=== PATIENT | female | born 1955 | race Caucasian/White ===

== ENCOUNTER 2025-01-22 06:45 | Day surgery (SDC) | payer MEDICARE, BC ==
[~2025-01-22] VITALS: Ht 168.9 cm; Wt 116.8 kg
[2025-01-22] VITALS (8 sets, daily range): BP systolic 105–143; BP diastolic 60–79; PULSE 55–69; RESP 12–16; TEMP 98.6; O2SAT 96–98
[~2025-01-22 06:45] MED LIST: AMLO-708 PO; ASCO100031 PO; CYAN50007 PO; ERGO400C PO; GLUC1TAB75 PO; LEVO100T PO; LIOT5TAB14 PO; MAGN250T11 PO; MULT-1085 PO; PYRI-3 PO; VITE1000C PO
[2025-01-22] MEDS ORDERED: fentaNYL/PF 50MCG/1 ML 2ML syringe ONE (07:33)
[2025-01-22] MEDS ORDERED: propofol inj 20 ML IV ONE (07:33)
[2025-01-22] MEDS ORDERED: midazolam 1 mg/ML 2ml injection ONE (07:33)
[2025-01-22] MEDS ORDERED: LIDOcaine 2% Viscous 15ml cup ONE (07:38)
--- NOTE | 2025-01-22 08:05 | OPERATIVE REPORT ---
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 The nature of the procedure #2. The risk, complications, and expected benefits of the procedure. #3. Any alternatives to the procedure and the risks/benefits. Preparation: EKG pulse, blood pressure and oxygen saturation monitoring Anesthesia/sedation: As per hospital record Procedure: The patient was placed in the left lateral decubitus position. The endoscope was introduced through the mouth, advanced through the pharynx, and under direct endoscopic visualization the esophagus was intubated. The scope was passed through the esophagus with identification of the EG junction and into the stomach. The scope was then passed into the antral area with visualization of the pylorus. The pylorus was cannulated and the duodenal bulb and second portion of the duodenum were visualized. The scope was brought back into the stomach where the cardia and fundus were visualized in a retrograde manner. Color, texture, mucosa and anatomy of the esophagus, stomach and duodenum were carefully examined with the scope on insertion and withdrawal. The patient tolerated the procedure well and there were no complications. After completion of the examination, patient was transferred to the recovery room. Findings: Oropharynx: Normal Esophagus: Normal EG junction: Normal in appearance; at 32 cm from the incisors Cardia: Normal; within the mediastinum Fundus: Normal; a portion within the mediastinum. Hiatal narrowing at 45 cm Body: Normal Antrum: Normal. Very mild antral gastritis Pylorus: Normal Duodenal bulb: Normal Second portion: Normal IMPRESSION: -giant type III paraesophageal hernia (13 cm) PLAN: -follow up to discuss surgical options RAYMON BARRY MD Jan 22, 2025 08:05
== END 2025-01-22 08:47 | disposition home or self-care (01) ==
LOC: OR 06:45
PROVIDERS: ATTEND Surgery
DX: K44.9 Diaphragmatic hernia without obstruction or gangrene (principal); K29.60 Other gastritis without bleeding; I10 Essential (primary) hypertension; E03.9 Hypothyroidism, unspecified; E66.9 Obesity, unspecified; Z90.49 Acquired absence of other specified parts of digestive tract; Z94.81 Bone marrow transplant status; Z98.41 Cataract extraction status, right eye; Z98.42 Cataract extraction status, left eye; Z98.891 History of uterine scar from previous surgery; Z98.890 Other specified postprocedural states; Z68.41 Body mass index [BMI] 40.0-44.9, adult; Z88.0 Allergy status to penicillin; Z88.8 Allergy status to other drugs, medicaments and biological substances; Z82.49 Family history of ischemic heart disease and other diseases of the circulatory system; Z82.5 Family history of asthma and other chronic lower respiratory diseases
CPT/HCPCS: 43235; A4620; J2250; J2704; J3010; J7030; J7120; Z7512; Z7610

== ENCOUNTER 2025-05-21 06:52 | Observation (INO) | payer MEDICARE, BC ==
[2025-05-14 12:15] LABS: MEAN PLATELET VOLUME 7.4 FL (7.4-10.4); PRE OP HEMATOCRIT 39.5 % (35.0-45.0); PRE OP HEMOGLOBIN 13.3 g/dL (12.0-16.0); PRE OP PLATELET COUNT 196 X10'3 (140-440); PRE OP WHITE BLOOD COUNT 5.5 10'3 (4.8-10.8); RED CELL DISTRIBUTION WIDTH 14.4 % (11.5-14.5)
[2025-05-14 12:30] LABS: CREATININE 1.07 MG/DL (0.40-0.90); PRE OP ALT 23 U/L (30-65); PRE OP ANION GAP 6 (8-16); PRE OP AST 18 U/L (10-37); PRE OP BILIRUB, TOTAL 0.5 MG/DL (0.0-1.0); PRE OP GLUCOSE 96 MG/DL (70-104); PRE OP POTASSIUM 4.5 MMOL/L (3.4-5.1); PRE OP SODIUM 139 MMOL/L (135-145); TOTAL CARBON DIOXIDE 29.8 MMOL/L (24-32); eGFR 51 ML/MIN
[2025-05-21] VITALS (29 sets, daily range): BP systolic 134–175; BP diastolic 71–91; PULSE 63–83; RESP 9–19; TEMP 97.8–98.7; O2SAT 96–100
[~2025-05-21] VITALS: Ht 170.2 cm; Wt 99.0 kg
[2025-05-21] MEDS: clindamycin-Cleocin 900mg/D5W 50 ML IV ONE (05:30)
[~2025-05-21 06:52] MED LIST changes: -AMLO-708 PO; +ASCO-134 PO; -ASCO100031 PO; +CHOL100046 PO; -CYAN50007 PO; +CYAN500T3 PO; -ERGO400C PO; +FERR-116 PO; -GLUC1TAB75 PO; -MAGN250T11 PO; +MAGN400C PO; +P-EP-21 PO; +POTASSIUM GLUCONATE; -PYRI-3 PO; +VITA-288 PO; -VITE1000C PO; +[UNRECOGNIZED DRUG - CODE] PO
[2025-05-21] MEDS: ringers solution, lacted 1,000 ML IV SCH ×2 (07:41→19:11)
[2025-05-21] MEDS ORDERED: BUPIVAcaine/PF 2.5mg/ml (0.25%) 10ml vial ONE (08:38)
[2025-05-21] MEDS ORDERED: LIDOcaine 1% 30ml preserv. free vial ONE (08:39)
[2025-05-21] MEDS ORDERED: midazolam 1 mg/ML 2ml injection ONE (08:50)
[2025-05-21] MEDS ORDERED: acetaminophen 1,000mg/100ml IV 0 ML IV ONE (08:51)
[2025-05-21] MEDS ORDERED: fentaNYL /PF 50mcg/ml 5ml ampule ONE (08:51)
[2025-05-21] MEDS ORDERED: rocuronium 10mg/ml inj IV ONE ×2 (08:52→10:22)
[2025-05-21] MEDS ORDERED: acetaminophen 1,000mg/100ml IV 100 ML IV ONE (08:53)
[2025-05-21] MEDS ORDERED: LIDOcaine 2% (20mg/ml) 5ml vial ONE (08:53)
[2025-05-21] MEDS ORDERED: propofol inj 20 ML IV ONE (08:53)
[2025-05-21] MEDS ORDERED: ondansetron/PF 4mg/2ml inj ONE (08:53)
[2025-05-21] MEDS ORDERED: dexamethasone sod phosphate 4mg/ml inj. ONE (08:53)
[2025-05-21] MEDS ORDERED: ondansetron/PF 4mg/2ml inj IV PRN ×2 (09:00→12:00)
[2025-05-21] MEDS ORDERED: labetalol 20mg/4ml (5mg/ml) syringe IV PRN (09:00)
[2025-05-21] MEDS ORDERED: morphine 4 MG/ML inj SYRINge IV PRN (09:00)
[2025-05-21] MEDS ORDERED: fentaNYL/PF 50MCG/1 ML 2ML syringe IV PRN ×2 (09:00)
[2025-05-21] MEDS: BUPIVAcaine/PF 2.5mg/ml (0.25%) 10ml vial IJ ONE (09:45)
[2025-05-21] MEDS: LIDOcaine 1% 30ml preserv. free vial IJ ONE (09:45)
--- NOTE | 2025-05-21 11:50 | HISTORY AND PHYSICAL ---
History & Physical Providers to CC CC: CAMDEN BARRY MD ~ History of Present Illness Reason for Admit\Complaint: Paraesophageal hernia History of Present Illness Interval history and physical exam Patient here today for elective repair of a very, very large paraesophageal h geovanna She denies any change in her past medical history since she was seen in the office (please see previous history and physical exam for all pertinent details) She is scheduled for robotic assisted, laparoscopic mesh repair She states she has lost more than 30 lb in preparation for this surgery. Allergies: Coded Allergies: Penicillins (Verified Allergy, Intermediate, HIVES/RASH ( A CHILD), 05/20/25) Quinolones (Verified Allergy, Intermediate, HIVES/RASH, 05/20/25) Home Medications Home Medications Active Reported Iron (Ferrous Sulfate) 325 Mg (65 Mg Iron) Tablet 1 Tab PO DAILY Magnesium (Magnesium Oxide) 400 Mg Magnesium Capsule 1 Cap PO DAILY Vitamin D3 (Cholecalciferol (Vitamin D3)) 25 Mcg (1000 Unit) Capsule 5,000 Units PO DAILY Ascorbic Acid 500 Mg Tablet 1 Tab PO DAILY Vitamin B-6 (Pyridoxine Hcl) 100 Mg Tablet 1 Tab PO DAILY Vitamin B-12 (Cyanocobalamin (Vitamin B-12)) 500 Mcg Tablet 1,000 Mcg PO DAILY Vitamin E (Vitamin E Mixed) 400 Unit Capsule 1 Cap PO DAILY Alavert D-12 Allergy-Sinus Tab* (Loratadine/Pseudoephedrine Sulfate) 1 Each Tablet 1 Each PO DAILY PRN [Potassium Gluconate] Multi Vitamin Daily (Multivitamin) 1 Each Tablet 1 PO DAILY Cytomel (Liothyronine Sodium) 5 Mcg Tablet 1 Tab PO DAILY Synthroid (Levothyroxine Sodium) 100 Mcg Tablet 1 Tab PO DAILY ROS ROS Reviewed and negative Exam General: 69-year-old female in no acute distress Chest: Lungs are clear to auscultation bilaterally Cardiovascular: Regular rate and rhythm without murmurs Abdomen: Soft and nondistended There was an infraumbilical incisional hernia Problems: (1) Paraesophageal hernia Status: Chronic Assessment & Plan: Risks, benefits, and alternatives to a robotic assisted, laparoscopic paraesophageal hernia repair with mesh were discussed with the patient. Risks include, but are not limited to, bleeding, infection, injury to intra-abdominal structures, hernia recurrence and the need for additional surgical procedures. Patient verbalized understanding and wishes to proceed with surgery. We will do so today as scheduled CAMDEN BARRY MD May 21, 2025 11:50
[2025-05-21] MEDS: potassium CL 20mEq in D5-1/2NS 1,000 ML IV SCH (12:00)
[2025-05-21] MEDS: hydrALAZINE 20mg/ml inj. IV PRN (12:25)
[2025-05-21] MEDS: HYDROmorph/NS 0.2 mg/ml PCA 100 ML IV SCH (13:00)
--- NOTE | 2025-05-21 13:07 | RADIOLOGY REPORT ---
EXAM: DI CHEST,SINGLE VIEW Indication: POST OP Technique: Single frontal view of the chest was obtained Comparison: None FINDINGS: Lines and Tubes: None Lungs: No focal consolidation. Pleura: No effusion. No pneumothorax. Cardiomediastinal contours: Cardiomegaly. Subcutaneous gas is visualized in the bilateral neck. Bones: No acute osseous abnormality. IMPRESSION: Subcutaneous gas is visualized in the bilateral neck which may be postsurgical. Cardiomegaly.
[2025-05-21] MEDS: morphine 4 MG/ML inj SYRINge IV PRN (13:22)
[2025-05-21] MEDS: normal saline 1000ml 1,000 ML IV SCH (19:05)
[2025-05-21] MEDS: heparin, porcine 5000 units/ml vial SQ SCH (19:10)
[2025-05-22 02:00] VITALS: BP 160/79; PULSE 61; RESP 16; TEMP 97.9; O2SAT 93
[2025-05-22 06:00] VITALS: BP 149/83; PULSE 63; RESP 16; TEMP 97.8; O2SAT 95
[2025-05-22 08:00] VITALS: RESP 14; O2SAT 96
--- NOTE | 2025-05-22 08:26 | RADIOLOGY REPORT ---
CHEST RADIOGRAPH Indication: POST OP Technique: Single frontal view of the chest was obtained Comparison: DI CHEST,SINGLE VIEW on DOS: 05/21/25, DI CHEST,SINGLE VIEW on DOS: 05/21/25 FINDINGS: Lines and Tubes: None Lungs: No focal consolidation. Pleura: No effusion. No pneumothorax. Cardiomediastinal contours: Cardiomegaly. Subcutaneous gas is visualized in the bilateral neck. Bones: No acute osseous abnormality. IMPRESSION: Subcutaneous gas is visualized in the bilateral neck which may be postsurgical. Cardiomegaly.
[2025-05-22] MEDS ORDERED: oxyCODONE/APAP 5-325mg tablet PO ONE (09:05)
[2025-05-22] MEDS ORDERED: oxyCODONE/APAP 5-325mg tablet PO PRN (09:05)
[2025-05-22] MEDS: PCA WASTE DOCUMENTATION 1 MG ML MC SCH (09:37)
[2025-05-22 10:00] VITALS: BP 145/79; PULSE 55; RESP 18; TEMP 97.1; O2SAT 94
[2025-05-22] MEDS ORDERED: PER5325T PO (13:14)
--- NOTE | 2025-05-22 13:16 | DISCHARGE SUMMARY ---
Discharge Summary Providers to CC CC: MARIA DEL CARMEN BARRY ~ Discharge Summary Admission Diagnosis: Paraesophageal hernia Hospital Course DATE OF ADMISSION: May 21, 2025 DATE OF DISCHARGE: May 22, 2025 Discharge Diagnosis\Comment: Giant type 3 paraesophageal hernia Operations\Procedures: Robotic assisted, laparoscopic paraesophageal hernia repair with mesh Consultants: Raymon Barry MD FACS Complications: None Condition on DC: Stable New Medications: Oxycodone Hcl/Acetaminophen 5/325 MG* (Percocet 5/325 MG*) 5 Mg/325 Mg Tablet 1 TAB PO Q4H PRN for moderate or severe pain 4-10 for 5 Days, #30 TAB Continued Medications: Ascorbic Acid (Ascorbic Acid) 500 Mg Tablet 1 TAB PO DAILY Cholecalciferol (Vitamin D3) (Vitamin D3) 25 Mcg (1000 Unit) Capsule 5000 UNITS PO DAILY Cyanocobalamin (Vitamin B-12) (Vitamin B-12) 500 Mcg Tablet 1000 MCG PO DAILY Ferrous Sulfate (Iron) 325 Mg (65 Mg Iron) Tablet 1 TAB PO DAILY Levothyroxine Sodium (Synthroid) 100 Mcg Tablet 1 TAB PO DAILY Liothyronine Sodium (Cytomel) 5 Mcg Tablet 1 TAB PO DAILY Magnesium Oxide (Magnesium) 400 Mg Magnesium Capsule 1 CAP PO DAILY Multivitamin (Multi Vitamin Daily) 1 Each Tablet 1 PO DAILY, TAB P-Ephed Sul/Loratadine* (Alavert D-12 Allergy-Sinus Tab*) 1 Each Tablet 1 EACH PO DAILY PRN for allergies [Potassium Gluconate] () Pyridoxine Hcl (Vitamin B-6) 100 Mg Tablet 1 TAB PO DAILY Vitamin E Mixed (Vitamin E) 400 Unit Capsule 1 CAP PO DAILY Discharge Summary: Patient was admitted for routine observation, pain control and nausea control overnight. She met discharge criteria in the morning and was deemed ready for discharge home. At the time of discharge she was having only minimal dysphagia to full liquid diet and pain was adequately controlled with oral pain medication. *Problems/Diagnosis: (1) Paraesophageal hernia Status: Chronic Total Time Spent on D/C: Up to 30 Minutes Counseling Services Smoking & Tobacco Cessation: N/A RAYMON BARRY MD May 22, 2025 13:16
--- NOTE | 2025-05-26 18:52 | OPERATIVE REPORT ---
Operative Report Providers to CC CC: RAYMON BARRY MD ~ Date of Procedure: May 21, 2025 Pre-Operative Diagnosis: Paraesophageal hernia Post-Operative Diagnosis SAME as PRE-Op Procedure Performed Robotic assisted, laparoscopic paraesophageal hernia repair with mesh Surgeon: Raymon Barry MD [facility] Octave Board Racker None Type of Anesthesia: General Findings: Giant type III paraesophageal hernia with a proximally 50% of the stomach above the hiatus Wound class I Complications None Prosthetics\Implants used: Phasix mesh Estimated Blood Loss: Minimal Specimen Removed: Hernia sac excised and discarded with the attached gastroesophageal fat pad Description of Procedure: Patient was brought to the operating room and identified by the nursing staff and the attending physician. Patient was placed supine and general anesthesia was induced. Preoperative antibiotics were given. Quinones catheter was placed. The abdomen was prepped and draped in the standard sterile fashion. At [place], Veress needle technique was used through a stab incision to access and insufflate the abdomen. This was accomplished without incident. An optical, 12 mm trocar was used to gain access to the abdomen in the left upper quadrant under laparoscopic visualization. Additional 8.5 mm robotic trochars were placed under laparoscopic visualiza tion in the left lateral upper abdomen, left epigastrium and right upper quadrant. Patient was placed in steep, reverse Trendelenburg position. The da Fiorella robotic arm was docked to the patient and instruments guided into the abdomen under laparoscopic visualization. The left lobe of the liver was lifted and the hiatus inspected. A very large hiatal defect was noted with a large amount of the stomach herniated above the hiatus. An 18 inch, 0, V-Loc suture was used to sling the left lobe of the liver up to the anterior abdominal wall. There was about 50% of the stomach above the hiatus and the majority of this reduced, leaving portion of the fundus and GE junction above the hiatus. With the stomach retracted towards the patient's left upper quadrant, dissection was initiated along the pars flaccida and the lesser sac was entered. The lesser omentum was divided up to the right hi. There was not a replaced left hepatic artery. Dissection was carried in to the mediastinum. The mediastinal space was entered. Dissection was then carried posteriorly along the right hi, taking care to leave peritoneum overlying the muscles. Once the posterior decussation was encountered, attention was then turned to the short gastric vessels. Stomach was retracted toward the patient's right and the short gastric vessels were placed on tension. The short gastric vessels were divided along the upper portion of the greater curvature, up to the phrenoesophageal ligament which was also then divided. The peritoneal ref lection of the left hi was opened and dissection carried up until the apex of the crura was reached. Dissection was carried up into the mediastinum, mobilizing the esophagus from the retrocardiac space and taking care not to injure the bilateral pleura. The entire hernia sac which was very large in size, was mobilized out of the mediastinum and reduced into the abdomen. Excess sac was dissected at the level of the gastroesophageal fat pad and set aside. The retroesophageal space was developed. The GE junction was retracted anteriorly and the mediastinal dissection was carried out posterior to the esophagus. Dissection continued until at least 3 cm of intra-abdominal esophagus was obtained without any retraction on the stomach. With the stomach retracted anteriorly, adequate space and visualization was obtained to allow for the crural repair. Strips of bioabsorbable, Phasix mesh were used to reinforce the crural repair. A strip of mesh was placed over each crura and used for reapproximation without tension. Attention was then turned to the gastropexy. Fundus was anchored to the upper left portion of the hiatus with full-thickness crural sutures. The suture was then run along the greater curvature creating a gastropexy to the anterior abdominal wall. Care was taken to stay medial to the phrenic nerve and vascular bundle. About a fourth of the gastric fundus was anchored to the anterior abdominal wall. Attention was then turned to the modified Hill procedure/augmentation stitch. The angle of His was then recreated with a running, 2/0, nonabsorbable, V-Loc suture. This was run between the fundus and the lateral border of the intra-abdominal esophagus. This suture was run up to the level of the left hi. Gastropexy was then completed by running the midportion of the gastric fundus towards the initial gastropexy suture and anchoring the 2 together. Bessie and sutures were retrieved. The da Fiorella robotic arm was undocked from the patient. The 12 mm port was removed and the fascial defect closed percutaneously with 0 Vicryl suture. Remaining ports were removed and the abdomen was allowed to deflate. Skin was closed at all sites with 4-0 Monocryl sutures and dressed with Dermabond. Patient was extubated and transferred to the postanesthesia care unit in stable condition. Counts repoted as correct: Yes RAYMON BARRY MD May 26, 2025 18:52
== END 2025-05-22 14:15 | disposition home or self-care (01) ==
LOC: PAS 06:52 → PAS IN 12:00 → SUR 3N 13:50
PROVIDERS: ADMIT Surgery; ATTEND Surgery
DX: K44.9 Diaphragmatic hernia without obstruction or gangrene (principal); R11.0 Nausea; Z88.0 Allergy status to penicillin; Z79.899 Other long term (current) drug therapy; Z98.890 Other specified postprocedural states
CPT/HCPCS: 43282; 80053; 82948; 96374; 96375; A4615; A4618; C1781; G0378; J1171; J3480; J3490; J7120; 36415; 71045; 85025; J0131; J0360; J1100; J2003; J2250; J2270; J2405; J2704; J3010; J7030